=== PATIENT | male | born 1995 | race Caucasian/White ===

== ENCOUNTER 2018-08-16 18:47 | Emergency (ER) | payer OTHER ==
[2018-08-16] MEDS ORDERED: NS 0.9% 1000 ML** 1,000 ML IV ONE (20:28)
[2018-08-16] MEDS ORDERED: Pantoprazole IV* 40 MG IV ONE (20:28)
[2018-08-16] MEDS ORDERED: Metoclopramide IV* 5 MG/ML 2 ML VIAL IV SLOW PU ONE (20:29)
[2018-08-16] MEDS ORDERED: Al Hydrox/Mg Hydrox/Simet LIQ* 30 ML UDC PO ONE (20:29)
[2018-08-16] MEDS ORDERED: Morphine VIAL* 10 MG/ML 1 ML VIAL IV ONE (20:29)
[2018-08-16] MEDS ORDERED: Lidocaine 2% VISCOUS* 15 ML UDC PO ONE (20:30)
--- NOTE | 2018-08-16 20:30 | ED ---
Abdominal Pain/Male - HPI Summary HPI Summary: This patient is a 23 year old M presenting to ED with a chief complaint of epigastric pain since 3 hours ago. The CC is described as severe and sharp pain radiating to the back. The patient rates the pain 10/10 in severity. Symptoms aggravated by nothing. Symptoms alleviated by nothing (took tums to no relief). Patient denies N/V/D, fever, chills, constipation, and urinary problems. Patient has had an appendectomy. Patient reports he had no ETOH last night. PMHx of ADHD. - History of Current Complaint Chief Complaint: EDAbdPain Stated Complaint: ABD PAIN Time Seen by Provider: 08/16/18 20:22 Hx Obtained From: Patient Onset/Duration: Sudden Onset, Lasting Hours - 3 hours ago, Still Present Timing: Constant, Lasting Hours Severity Initially: Severe Severity Currently: Severe Pain Intensity: 10 Pain Scale Used: 0-10 Numeric Location: Epigastric Radiates: Yes Radiates to: Back Aggravating Factor(s): Nothing Alleviating Factor(s): Nothing - took tums to no relief Associated Signs And Symptoms: Positive: Back Pain. Negative: Fever, Nausea, Vomiting, Diarrhea - Allergies/Home Medications Allergies/Adverse Reactions: Allergies Allergy/AdvReac Type Severity Reaction Status Date / Time Penicillins Allergy Eyes Verified 08/16/18 18:53 Itchy/Swollen/Red/Watery tree nut Allergy Swelling Verified 08/16/18 18:53 Of Face,Lips,& Throat Home Medications: Home Medications Lisdexamfetamine(NF) [Vyvanse(NF)] 50 mg PO DAILY 08/16/18 [History Confirmed ] PMH/Surg Hx/FS Hx/Imm Hx Endocrine/Hematology History: Denies: Hx Diabetes Cardiovascular History: Denies: Hx Coronary Artery Disease - Surgical History Surgery Procedure, Year, and Place: appendectomy in 4th grade Infectious Disease History: No Infectious Disease History: Denies: Traveled Outside the [place] in Last 30 Days - Family History Known Family History: Negative: Cardiac Disease, Hypertension, Diabetes - Social History Alcohol Use: Weekly Alcohol Amount: pt currently intoxicated Substance Use Type: Reports: Marijuana Smoking Status (MU): Never Smoked Tobacco Review of Systems Negative: Fever, Chills Positive: Abdominal Pain - epigastric, Other - denies constipation. Negative: Vomiting, Diarrhea, Nausea Positive: no symptoms reported All Other Systems Reviewed And Are Negative: Yes Physical Exam - Summary Physical Exam Summary: VITAL SIGNS: Reviewed. GENERAL: Patient is a well-developed and nourished MALE who is lying comfortable in the stretcher. Patient is not in any acute respiratory distress. HEAD AND FACE: No signs of trauma. No ecchymosis, hematomas or skull depressions. No sinus tenderness. EYES: PERRLA, EOMI x 2, No injected conjunctiva, no nystagmus. EARS: Hearing grossly intact. Ear canals and tympanic membranes are within normal limits. MOUTH: Oropharynx within normal limits. NECK: Supple, trachea is midline, no adenopathy, no JVD, no carotid bruit, no c- spine tenderness, neck with full ROM. CHEST: Symmetric, no tenderness at palpation LUNGS: Clear to auscultation bilaterally. No wheezing or crackles. CVS: Regular rate and rhythm, S1 and S2 present, no murmurs or gallops appreciated. ABDOMEN: Soft, epigastric tenderness. No signs of distention. No rebound no guarding, and no masses palpated. Bowel sounds are normal. EXTREMITIES: FROM in all major joints, no edema, no cyanosis or clubbing. NEURO: Alert and oriented x 3. No acute neurological deficits. Speech is normal and follows commands. SKIN: Dry and warm Triage Information Reviewed: Yes Vital Signs On Initial Exam: Initial Vitals Temp Pulse Resp BP Pulse Ox 98.2 F 72 18 150/103 100 08/16/18 18:48 08/16/18 18:48 08/16/18 18:48 08/16/18 18:48 08/16/18 18:48 Vital Signs Reviewed: Yes Diagnostics - Vital Signs Vital Signs Temp Pulse Resp BP Pulse Ox 08/16/18 20:16 68 157/100 100 08/16/18 18:48 98.2 F 72 18 150/103 100 - Laboratory Result Diagrams: 08/16/18 21:10 08/16/18 21:10 Lab Statement: Any lab studies that have been ordered have been reviewed, and results considered in the medical decision making process. - CT CT abd/pel CT Interpretation Completed By: Radiologist Summary of CT Findings: Findings of nonspecific likely infectious enteritis. ED physician has reviewed this radiology report. Re-Evaluation - Re-Evaluation First Eval Re-Evaluation Time: 22:14 Change: Unchanged Comment: The patients pain is the same despite giving him morphine for his pain. Bloodwork is essentially unremarkable but since he is stil having pain after being given the morphine, he will get a CT of his abdomen and Toradol for his pain. Second Eval Re-Evaluation Time: 23:39 Comment: Discussed CT results and plan for discharge with the patient. Abdominal Pain Fem Course/Dx - Course Assessment/Plan: This patient is a 23 year old M presenting to ED with a chief complaint of epigastric pain since 3 hours ago. The CC is described as severe and sharp pain radiating to the back. The patients pain is the same despite giving him morphine for his pain. Bloodwork is essentially unremarkable but since he is stil having pain after being given the morphine, he will get a CT of his abdomen and Toradol for his pain. CT abd/pel reveals findings of nonspecific likely infectious enteritis. The patient will be discharged with dx of enteritis. Patient understands and agrees with this plan. - Diagnoses Differential Diagnosis/HQI/PQRI: Other - enteritis Provider Diagnoses: Enteritis Discharge - Sign-Out/Discharge Documenting (check all that apply): Patient Departure - discharge Patient Received Moderate/Deep Sedation with Procedure: No - Discharge Plan Condition: Stable Disposition: HOME Prescriptions: Levofloxacin TAB* [Levaquin TAB*] 500 mg PO DAILY #7 tab metroNIDAZOLE [Flagyl 500 MG TAB] 500 mg PO TID #20 tab Patient Education Materials: Enteritis (ED) Referrals: [facility] [Outside] (Follow up in 1-2 days.) Additional Instructions: RETURN TO THE EMERGENCY DEPARTMENT FOR CHANGING OR WORSENING SYMPTOMS. FOLLOW UP WITH PCP IN 1-2 DAYS. - Attestation Statements Document Initiated by Scribe: Yes Documenting Scribe: Raphael Stephenson Provider For Whom Jorge is Documenting (Include Credential): Joni Goyal MD Scribe Attestation: I, Raphael Stephenson, scribed for Joni Goyal MD on 08/16/18 at [id number]. Status of Scribe Document: Ready
[2018-08-16 21:19] LABS: ABS Basophils 0 10^3/ul (0-0.2); ABS Eosinophils 0 10^3/ul (0-0.6); ABS Lymphocytes 1.4 10^3/ul (1.0-4.8); ABS Monocytes 0.6 10^3/ul (0-0.8); ABS Neutrophils 9.9 10^3/ul (1.5-7.7); ABS Nucleated RBC 0 10^3/ul; Eosinophil % 0.3 %; Hematocrit 44 % (42-52); Hemoglobin 14.8 g/dl (14.0-18.0); Lymphocyte % 11.8 %; Mean Corpuscular HGB Conc 34 g/dl (31-36); Mean Corpuscular Hemoglobin 30 pg (27-31); Mean Corpuscular Volume 90 fL (80-94); Mean Platelet Volume 8.4 fL (7.4-10.4); Nucleated Red Blood Cells % 0; Platelet Count 298 10^3/ul (150-450); Red Blood Count 4.96 10^6/ul (4.00-5.40); Red Cell Distribution Width 13 % (10.5-15)
[2018-08-16 21:37] LABS: ALT 22 U/L (7-52); AST 30 U/L (13-39); Albumin 4.5 g/dL (3.2-5.2); Albumin/Globulin Ratio 1.6 (1-3); Alkaline Phosphatase 97 U/L (34-104); Amylase 33 U/L (29-103); Anion Gap 12 mmol/L (2-11); BUN/Creatinine Ratio 10.3 (8-20); Blood Urea Nitrogen 12 mg/dL (6-24); C Reactive Protein 4.89 mg/L (<8.01); CO2 Carbon Dioxide 27 mmol/L (22-32); Calcium 10.1 mg/dL (8.6-10.3); Chloride 98 mmol/L (101-111); EGFR African American 94.3 (>60); Globulin 2.8 g/dL (2-4); Glucose 137 mg/dL (70-100); Magnesium 1.7 mg/dL (1.9-2.7); Potassium 3.8 mmol/L (3.5-5.0); Sodium 137 mmol/L (135-145); Total Protein 7.3 g/dL (6.4-8.9)
[2018-08-16 21:55] LABS: Alcohol < 10 mg/dL (<10)
[2018-08-16] MEDS ORDERED: Ketorolac INJ* 30 MG/ML 1 ML VIAL IV PUSH ONE (22:13)
[2018-08-16] MEDS ORDERED: Iohexol 300* (CONTRAST) 10 ML SDV IV ONE (22:30)
[2018-08-16] MEDS ORDERED: Amoxicillin/Clavulanate TAB* 500 MG PO ONE (23:36)
[2018-08-16] MEDS ORDERED: metroNIDAZOLE TAB* 250 MG PO ONE (23:37)
[2018-08-16 23:42] LABS: Urine Appearance Clear; Urine Bilirubin Negative (Negative); Urine Blood Negative (Negative); Urine Color Yellow; Urine Glucose Negative (Negative); Urine Ketones 1+ (Negative); Urine Nitrite Negative (Negative); Urine Protein Negative (Negative); Urine Specific Gravity > 1.060 (1.010-1.030); Urine Urobilinogen Negative (Negative)
[2018-08-17 00:02] VITALS: BP 143/102
== END 2018-08-17 00:02 | disposition home or self-care (01) ==
LOC: ED 18:47
DX: K52.9 Noninfective gastroenteritis and colitis, unspecified (principal); F90.9 Attention-deficit hyperactivity disorder, unspecified type; Z91.018 Allergy to other foods; Z88.0 Allergy status to penicillin
CPT/HCPCS: 36415; 74177; 80053; 80320; 81003; 82150; 83690; 83735; 85025; 86140; 96374; 96375; 99283; A9270-GY; G0480; J1885; J2270; J2765; Q9967